=== PATIENT | male | born 1985 | race Caucasian/White ===

== ENCOUNTER 2021-09-14 13:03 | Emergency (ER) | payer BC, OTHER ==
[2021-09-14 13:22] VITALS: BMI 34.2
[2021-09-14] MEDS ORDERED: CASIRIVIMAB/IMDEVIMAB 10 ML in SODIUM CHLORIDE 100 ML IVPB ONE (13:25)
[2021-09-14 15:41] VITALS: BP 111/58; PULSE 79; TEMP 98.6
== END 2021-09-14 15:49 | disposition home or self-care (01) ==
LOC: JCOVINFU 13:03 → JER 13:03 → JCOVINFU 15:49
PROC: 3E033GC Introduction of Other Therapeutic Substance into Peripheral Vein, Percutaneous Approach (ICD-10-PCS; principal; 2021-09-14)
DX: U07.1 COVID-19 (principal)
CPT/HCPCS: 99284-25; Q0240